=== PATIENT | female | born 1985 | race Two or more races ===

== ENCOUNTER 2025-03-01 00:38 | Emergency (ER) | payer MEDICAID, SELFPAY ==
[2025-03-01 00:53] VITALS: BP 117/81; PULSE 67; RESP 18; TEMP 36.4; O2SAT 99
--- NOTE | 2025-03-01 00:55 | EDNOTE_ITS ---
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 No fever, pelvic pain, dysuria or vaginal discharge reported. Patient states she tried to self remove the tampon at home but was unsuccessful. Related Data Home Medications ?Medication ?Instructions ?Recorded ?Confirmed vit no.95-ferrous 1 tab PO QDAY 08/21/1808/06 fumarate 28 mg-folic acid 800 mcg tablet () Previous Rx's ?Medication ?Instructions ?Recorded hydrocodone 5 mg-acetaminophen 325 1 tab PO QID PRN pa in #20 tabs 08/23/18 mg tablet diphenhydramine HCl 25 mg capsule 50 mg (2 x 25 mg) PO Q6H PRN rash 08/25/18 (Benadryl) #14 caps cephalexin 500 mg capsule (Keflex) 500 mg PO Q12H #14 caps 11/26/18 cephalexin 750 mg capsule (Keflex) 750 mg PO BID #14 c aps 06/13/21 Allergies Allergy/AdvReac Type Severity Reaction Status Date / Time No Known Allergies Allergy Verified 11/16/23 08:22 Review of Systems Review of Systems Systems Reviewed: All systems reviewed, normal except as documented Constitutional Constitutional: Denies chills and Denies fever(s) Gastrointestinal Gastrointestinal: Denies abdominal pain, Denies nausea and Denies vomiting Genitourinary Genitourinary: Denies dysuria and Denies vaginal discharge Past Medical History Past Medical History GASTROINTESTINAL: Positive Obesity Surgical History SURGICAL: Positive Section and Hx Cholecystectomy Social History SMOKING STATUS: Never smoker SUBSTANCE USE: does not use ALCOHOL: Never ED Exam General Limitations: Present no limitations Course Quality Measures none Vital Signs Vital signs: Vital Signs Temperature 97.5 F 03/01/25 00:53 Pulse Rate 67 03/01/25 00:53 Respiratory Rate 18 03/01/25 00:53 Blood Pressure 117/81 03/01/25 00:53 Pulse Oximetry (%) 99 03/01/25 00:53 Oxygen Delivery Method Room Air 03/01/25 00:53 Procedures -ED Foreign Body Removal Site: vagina Description of foreign body: other (tampon) Sedation/Analgesia: none Technique: removal with forceps Confirmed by:: direct visualization Complications: none Post-procedure exam: awake, alert Discharge Plan Plan Patient Disposition: HOME (Self Care) Patient condition on transfer: Stable Prescriptions/Referrals Prescriptions/Med Rec: No Action PNV cmb#95-ferrous fumarate-FA [] 28 mg iron- 800 mcg Tablet 1 tab PO QDAY hydrocodone-acetaminophen 5-325 mg tablet 1 tab PO QID MDD 4 PRN (Reason: pain) Qty: 20 0RF diphenhydramine HCl [Benadryl] 25 mg capsule 50 mg PO Q6H PRN (Reason: rash) Qty: 14 0RF cephalexin [Keflex] 750 mg capsule 750 mg PO BID Qty: 14 0RF cephalexin [Keflex] 500 mg capsule 500 mg PO Q12H Qty: 14 0RF Problem List Clinical Impression: Retained foreign body of vagina Patient/Caregiver Discharge Instructions Education Materials: ED FOREIGN BODY Vaginal Adult Print Language: Fijian Stand Alone Forms: [employer] Award Info., Patient Portal Info Letter 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 No fever, pelvic pain, dysuria or vaginal discharge reported. Patient states she tried to self remove the tampon at home but was unsuccessful. Tampon successfully removed from vagina. No complications, condition improved. Stable for discharge, RTED precautions given. Clinical Information Provided by: patient Medical Records reviewed [facility] (11/16/2023 ED visit for gastroenteritis) Meds/Rx considered, not ordered describe: No antibiotics recommended at this time Labs/Rad/Tests considered, not ordered None Chronic Illness/Social Conditions Explain: Poor access to healthcare, acculturation difficulty EKG EKG not done Labs Labs: none Imaging Imaging interpretation: none or see narrative above Medication Administration(s) none Diagnosis Differential Diagnosis ED Complaint MDM: Retained foreign body, no foreign body
== END 2025-03-01 01:21 | disposition home or self-care (01) ==
LOC: SERX 01:30
PROVIDERS: Emergency Provider Emergency Medicine
DX: T19.2XXA Foreign body in vulva and vagina, initial encounter (principal); W44.9XXA Unspecified foreign body entering into or through a natural orifice, initial encounter
CPT/HCPCS: 99283

== ENCOUNTER → 2025-09-02 | Outpatient (CLI) | payer MEDICAID, SELFPAY ==
--- NOTE | 2025-09-02 13:15 | XR_ITS ---
Examination: Screening digital mammography, bilateral Computer aided detection 3-D breast Tomosynthesis, bilateral Date and time of exam: September 02, 2025, 1245 hours, no priors Indication: Screening Technique: Nonmagnified MLO, CC views of the breasts to been obtained, reconstructed from 3-D Tomosynthesis images. R2 computer aided detection program utilized for evaluation of suspicious masses and/or abnormal calcifications. 3-D Tomosynthesis images obtained. Findings: Scattered areas of fibroglandular density. 18 mm focal asymmetry upper outer right breast anterior depth 6 mm circumscribed nodule 12 o'clock position right breast Impression: BI-RADS Category 0: Incomplete: Need additional imaging evaluation Recommend follow-up spot tomographic views of 18 mm focal asymmetry upper outer right breast, 6 mm circumscribed nodule 12 o'clock position right breast, bilateral breast sonography to complete work-up
== END | disposition home or self-care (01) ==
PROVIDERS: Referring Provider Nurse Practitioner Family; Visit Provider Nurse Practitioner Family
DX: Z12.31 Encounter for screening mammogram for malignant neoplasm of breast (principal); R92.8 Other abnormal and inconclusive findings on diagnostic imaging of breast; N64.89 Other specified disorders of breast
CPT/HCPCS: 77063; 77067